=== PATIENT | female | born 1945 | race Two or more races ===

== ENCOUNTER 2016-09-21 05:09 | Inpatient (IN) | payer MEDICARE, BC ==
[2016-09-21] MEDS ORDERED: SULFAMETHOXAZOLE/TRIMETHOPRI 800/160 MG PO ONE (05:49)
[2016-09-21] MEDS ORDERED: CEFTRIAXONE 1 GM PDS 1 GM in SODIUM CHLORIDE 0.9% 100 ML 100 ML IV ONE (05:49)
[2016-09-21] MEDS ORDERED: FUROSEMIDE 40 MG SOL IV ONE (05:50)
[2016-09-21] MEDS ORDERED: CEFTRIAXONE 1 GM PDS ONE (05:55)
[2016-09-21] MEDS ORDERED: FUROSEMIDE 40 MG SOL ONE (05:55)
[2016-09-21] MEDS ORDERED: SULFAMETHOXAZOLE/TRIMETHOPRI 800/160 MG ONE (05:56)
[2016-09-21 06:18] LABS: BASOPHILS % (AUTO) 1 % (0-3); EOSINOPHILS % (AUTO) 0 % (0-9); HEMATOCRIT 33 % (35-47); MEAN CORPUSCULAR HGB CONC 34.5 gm/dl (32.0-36.0); MEAN CORPUSCULAR VOLUME 92 fL (81-99); MONOCYTES % (AUTO) 6.7 % (0-12); NEUTROPHILS % (AUTO) 82.9 % (37-80)
[2016-09-21] MEDS ORDERED: IBUPROFEN 400 MG TAB PO PRN (06:40)
[2016-09-21] MEDS ORDERED: ACETAMINOPHEN 325 MG PO PRN (06:40)
[2016-09-21] MEDS ORDERED: ALBUTEROL HFA 60 PUFF/INHALER INH PRN (06:40)
[2016-09-21 06:45] LABS: POTASSIUM 3.3 mMol/L (3.5-5.1)
[2016-09-21 06:46] LABS: CALCIUM 9.1 mg/dl (8.5-10.1)
[2016-09-21] MEDS ORDERED: POTASSIUM CHLORIDE 10 MEQ CAPSULE PO SCH (08:00)
[2016-09-21] MEDS ORDERED: VANCOMYCIN HCL 500 MG PDS 1,000 MG in SODIUM CHLORIDE 0.9% 250 ML 250 ML IV ONE (08:23)
[2016-09-21 08:29] LABS: ABG PH 7.53 (7.35-7.45)
[2016-09-21] MEDS ORDERED: ALLOPURINOL 100 MG TAB PO SCH (09:00)
[2016-09-21] MEDS ORDERED: CLOPIDOGREL 75 MG TAB PO SCH (09:00)
[2016-09-21] MEDS ORDERED: VITAMIN D2 PO SCH (09:00)
[2016-09-21] MEDS ORDERED: CYANOCOBALAMIN 1000 MCG PO SCH (09:00)
[2016-09-21] MEDS ORDERED: PANTOPRAZOLE SODIUM 40 MG ECT PO SCH (09:00)
[2016-09-21] MEDS ORDERED: ASPIRIN EC 81 MG PO SCH (09:00)
[2016-09-21] MEDS ORDERED: FUROSEMIDE 40 MG SOL IV SCH (09:00)
[2016-09-21] MEDS ORDERED: SULFAMETHOXAZOLE/TRIMETHOPRI 800/160 MG PO SCH (09:00)
[2016-09-21] MEDS ORDERED: POTASSIUM CHLORIDE 10 MEQ TER PO SCH ×2 (09:00→11:00)
[2016-09-21] MEDS ORDERED: Non-Formulary Medication MISC (Fluticasone Propionate 2 SPR) NAS SCH (09:00)
[2016-09-21] MEDS ORDERED: METOPROLOL TARTRATE 25 MG TAB PO SCH (09:00)
[2016-09-21] MEDS ORDERED: METOPROLOL SUCCINATE 50 MG ER TAB PO SCH (09:00)
[2016-09-21] MEDS ORDERED: [UNRECOGNIZED DRUG - OTHER] PO SCH (09:00)
[2016-09-21] MEDS ORDERED: ENOXAPARIN 40 MG SOL SC SCH (09:00)
[2016-09-21] MEDS ORDERED: CALCIUM CARBONATE PO SCH (09:00)
[2016-09-21] MEDS: GABAPENTIN 300 MG CAP PO SCH ×3 (09:26→21:12)
[2016-09-21] MEDS: ALBUTEROL/IPRATROPIUM 1 VIAL SOL INH SCH ×3 (09:32→21:16)
[2016-09-21] MEDS ORDERED: VANCOMYCIN HYDROCHLORIDE 500 MG PDS IV ONE (09:34)
[2016-09-21] MEDS ORDERED: SODIUM CHLORIDE 0.9% 500 ML 500 ML IV ONE ×2 (17:09→18:59)
[2016-09-21 20:57] VITALS: BP 95/63; TEMP 99.6
[2016-09-21] MEDS ORDERED: TRAVOPROST SOL RIGHTEYE SCH (21:00)
[2016-09-21] MEDS ORDERED: SIMVASTATIN 20 MG TAB PO SCH (21:00)
[2016-09-21] MEDS ORDERED: HYDROCORTISONE SODIUM SUCCIN 100 MG PDS IV ONE (21:15)
[2016-09-21 21:43] VITALS: PULSE 78; RESP 20; O2SAT 93
[2016-09-22] MEDS ORDERED: CEFTRIAXONE 1 GM PDS 1 GM in SODIUM CHLORIDE 0.9% 100 ML 100 ML IV SCH (06:30)
== END 2016-09-21 22:30 | disposition short-term general hospital (02) | DRG 292 ==
LOC: ED 05:09 → ACUTE CARE 06:29
PROVIDERS: ADMIT Emergency Medicine; ATTEND Emergency Medicine
DX: I50.9 Heart failure, unspecified (principal); L03.116 Cellulitis of left lower limb; L03.115 Cellulitis of right lower limb; I48.91 Unspecified atrial fibrillation; I25.10 Atherosclerotic heart disease of native coronary artery without angina pectoris
CPT/HCPCS: 36415; 36600; 71010; 80048; 82803; 83880; 84132; 84484; 85025; 85610; 85730; 87040; 87077; 87186; 87205; 93005; 94640; 96374; 99235; 99291; J0696; J1650; J1720; J1940; J3370; J7620; A4450